=== PATIENT | male | born 1940 | race Caucasian/White ===

== ENCOUNTER 2019-06-14 08:10 | Outpatient (CLI) | payer MEDICARE, BC, SELFPAY ==
--- NOTE | 2019-06-14 06:00 | DI.RAD_ITS ---
SYMPTOM/DIAGNOSIS: LUMBAR SPONDYLOSIS C-ARM FLUOROSCOPY LUMBAR SPINE: Fluoroscopy Time: 78.9 sec Fluoroscopy was provided for guidance with lumbar spine injections. Please see procedure note for details.
[2019-06-14 09:04] VITALS: BP 176/86; PULSE 95; RESP 18; TEMP 36.2; O2SAT 100
[2019-06-14] MEDS: Midazolam 2 MG/2 ML VIAL IVP (09:33)
[2019-06-14] MEDS: Lactated Ringers 1,000 ML 80 ML IV (09:34)
[2019-06-14] MEDS: fentaNYL 100 MCG/2 ML VIAL IVP (09:34)
[2019-06-14] MEDS: Lidocaine 2% Pres-Free 5 ML VIAL IJ (09:55)
[2019-06-14 10:11] VITALS: BP 161/77; PULSE 103; RESP 12; O2SAT 98
[2019-06-14] MEDS: methylPREDNISolone ACETATE 40 MG/ML VIAL IJ (10:13)
[2019-06-14] MEDS: Bupivacaine 0.5% Pres-Free 10 ML VIAL IJ (10:14)
--- NOTE | 2019-06-14 10:16 | PDOC.PAIN ---
Pain Clinic Procedure Note Current Active Problems Problem Status Onset Spondylosis of lumbar region without myelopathy or radiculopathy LUMBAR/SACRAL MEDIAL BRANCH RADIOFREQUENCY USING THE COOLIEF MACHINE ALBER ESPINOZA has been referred [facility] for radiofrequency treatment of chronic axial back pain. ALBER has had long standing back pain thought to be facet joint generated and which has been refractory to other therapies. Local anesthetic medial branch blocks or intra-articular facet joint injections resulted in ALBER reporting reduction of the usual axial component of pain for at least the duration of the local anesthetic effect. COMMENTS:>6 MONTHS OF RELIEF WITH HIS LAST RFA ON 04/06/18. I DID DECIDED TO ADD BILATERAL S1 LATERAL BRANCH RFA TO GET BETTER ABLATION OF THE BILATERAL L5-S1 FACET JOINTS. Patient was interviewed and the medical record reviewed. There were no medical, pharmacologic, radiographic or other structural contraindications to attempting fluoroscopically guided radiofrequency treatment. Risks and expected side effects as well as potential benefit of the procedure were reviewed and voiced concerns addressed. The printed consent form was signed and witnessed. Standard time-out procedure was performed. Patient was placed in the prone position on the fluoroscopy table and automated blood pressure cuff and pulse oximeter applied. The skin entry points for approaching the anatomic target points of the segmental medial branches of bilateral L3-L5 and the lateral branches of bilateral S1were identified with fluoroscopy and marked. Following thorough Chlorhexadine preparation of the skin and draping and 1% lidocaine infiltration of the skin entry points and subcutaneous tissues, a single 18 guage curved 10 cm 10mm active tip radiofrequency cannula was placed under fluoroscopic guidance along or across the anatomic course of each respective segmental medial branch. Each placement was stimulated at 50Hz and les then 0.5V for medial branch sensory localization and the at 2Hz and up to 3 times the sensory voltage without any evidence of distal myotomal stimulation. 1cc of 1% ;idocaine was injected at each site. At each placement a continuous mode radiofrequency treatment was done at 80 degrees C for 90secs. This radiofrequency treatment should result in the denervation of the bilateral L4-L5 and L5-S1 FACET JOINTS. A total of 4 facets were expected to be denervated from today's treatment. Vital signs were stable throughout the procedure and were as recorded in the docflowsheet by the nursing staff. If given, dosages of intravenous drugs for anxiolysis and analgesia were documented in the Medication Administration Record (MAR). Follow up plans and appointments were discussed. Post procedure instruction was given as documented in the nursing documentation and having met discharge criteria, ALBER was discharged from the [facility]. COMMENTS: If he gets at least 6 months of relief from this procedure, he can have if repeated without repeating the LMBBs. CC: Tal Acosta
== END 2019-06-14 08:30 ==
PROVIDERS: PCP Family Medicine; Visit Provider Preventive Medicine Occupational Medicine
DX: M47.816 Spondylosis without myelopathy or radiculopathy, lumbar region (principal)
CPT/HCPCS: 64636 ×2; 64635 ×2; 72100; J1030; J2250; J3010

== ENCOUNTER 2019-07-05 10:11 | Outpatient (CLI) | payer MEDICARE, BC, SELFPAY ==
[2019-07-05 09:43] VITALS: BP 133/74; PULSE 53; RESP 16; TEMP 36.3; O2SAT 98
[2019-07-05] MEDS: Midazolam 2 MG/2 ML VIAL IVP (10:36)
[2019-07-05] MEDS: fentaNYL 100 MCG/2 ML VIAL IVP (10:38)
[2019-07-05] MEDS: Lactated Ringers 1,000 ML 80 ML IV (10:40)
[2019-07-05 11:02] VITALS: BP 163/74; PULSE 92; RESP 13; O2SAT 97
--- NOTE | 2019-07-05 11:02 | DI.RAD_ITS ---
SYMPTOMS/DIAGNOSIS: CERVICAL RADIOFREQUENCY ABLATION, CERVICAL SPONDYLOSIS C-ARM FLUOROSCOPY: Fluoroscopy Time: 46.0 sec., 10.43 mGy. C-arm fluoroscopy was utilized by Dr. Kilpatrick during reported cervical radiofrequency ablation. Hardcopy shows needle placement in lateral projection at what appears to be the C 3 - 4 and C 4 - 5 levels.
[2019-07-05] MEDS: Lidocaine 2% Pres-Free 5 ML VIAL IJ (12:09)
[2019-07-05] MEDS: Bupivacaine 0.5% Pres-Free 10 ML VIAL IJ (12:09)
[2019-07-05] MEDS: Dexamethasone Sod. Phos./Pres-Free 10 MG/ML VIAL IJ (12:10)
--- NOTE | 2019-07-05 12:30 | PDOC.PAIN_ITS ---
Pain Clinic Procedure Note Current Active Problems Problem Status Onset Spondylosis of cervical region without myelopathy or radiculopathy CERVICAL MEDIAL BRANCH RADIOFREQUENCY USING THE [employer] MACHINE ALBER ESPINOZA has been referred to the [facility] for radiofrequency treatment of chronic axial neck pain. @capnghia@ has had long standing cervical pain thought to be facet joint generated and which has been refractory to other therapies. Local anesthetic medial branch blocks resulted in @m@ @lname@ reporting a greater than 80% reduction of the usual axial component of pain and improved function for at least the duration of the local anesthetic effect. COMMENTS: He had about 10 months relief with his last cervical RFA at right C4- C7 on 04/27/18.: OLGA was interviewed and the medical record reviewed. There were no medical, pharmacologic, radiographic or other structural contraindications to attempting fluoroscopically guided radiofrequency treatment. Risks and expected side effects as well as potential benefit of the procedure were reviewed with OLGA, and OLGA's voiced concerns addressed. The printed consent form was signed and witnessed. Standard time-out procedure was performed. OLGA was placed in the prone position on the fluoroscopy table and automated blood pressure cuff and pulse oximeter applied. The skin entry points for approaching the anatomic target points of the segmental medial branches of right C4-C7 were identified with fluoroscopic guidence. Following thorough Chlorhexadine preparation of the skin and draping and 1% lidocaine infiltration of the skin entry points and subcutaneous tissues, a 5 cm, 18 guage, 10 mm active tip radiofrequency cannula was placed under fluoroscopic guidance at the anatomic course of each respective segmental medial branch. Each placement was stimulated at 50Hz and up to 1v in attempt to reproduce some component of OLGA?s usual pain. If this response was accomplished, the cannula was left in place. If it could not be accomplished after multiple attempts, the cannula was placed at what was felt to be the closest anatomic approximation to the segmental medial branch. Each placement was stimulated at 2Hz and up to 3v without any evidence of distal myotomal stimulation. At each placement a continuous mode radiofrequency treatment was done at 80 degrees C for 90secs This radiofrequency treatment should result in the denervation of the {Desc; right C4-C5, C5-C6 and C6-C7 FACET JOINTS. A total of 3 facets were expected to be denervated from today's treatment. OLGA's vital signs were stable throughout the procedure and were as recorded in the docflowsheet by the nursing staff. Follow up plans and appointments were discussed with OLGA. Post procedure instruction was given as documented in the nursing documentation and having met discharge criteria, Connor was discharged from the [facility]. COMMENTS: This procedure can be completed without repeating the CMBBs if he receives at least 6 months of relief. CC: Tal Acosta
== END 2019-07-05 10:31 ==
PROVIDERS: PCP Family Medicine; Visit Provider Preventive Medicine Occupational Medicine
DX: M47.812 Spondylosis without myelopathy or radiculopathy, cervical region (principal)
CPT/HCPCS: 64634 ×2; 64633; 72040; J2250; J3010

== ENCOUNTER 2019-08-07 08:55 | Outpatient (CLI) | payer MEDICARE, BC, SELFPAY ==
--- NOTE | 2019-08-07 06:00 | DI.RAD_ITS ---
EXAM: XR PAIN CLINIC . CLINICAL HISTORY: LT CERVICAL RFA TECHNIQUE: Realtime digital imaging was performed. CONTRAST MATERIAL: Water soluble contrast was administered. COMPARISON: None. FINDINGS: Images obtained from the pain clinic demonstrate needle positioning over the level of C 3, C4 and C5 in connection with a radiofrequency ablation. Please see Dr. Kilpatrick's procedure report for further inf ormation. IMPRESSION:
[2019-08-07 09:23] VITALS: BP 162/93; PULSE 96; RESP 18; TEMP 36; O2SAT 98
[2019-08-07] MEDS: Bupivacaine 0.5% Pres-Free 10 ML VIAL IJ (09:59)
--- NOTE | 2019-08-07 10:00 | PDOC.PAIN_ITS ---
Pain Clinic Procedure Note Procedure Note Procedure Note: CERVICAL MEDIAL BRANCH BLOCKS ALBER ESPINOZA has been referred to the [facility] for cervical medial branch blocks. COMMENTS: I did review Ms. Warren's note and spoke with the patient. He has left-sided neck pain which does not radiate into the head and travels to the upper mid-back. DX: Cervical spondylosis without myelopathy OLGA was interviewed and the medical record reviewed. There were no medical, pharmacologic, radiographic or other structural contraindications to attempting fluoroscopically guided local anesthetic cervical medial branch blocks. Risks and expected side effects as well as potential benefit of the procedure were reviewed with OLGA, and OLGA's voiced concerns addressed. The printed consent form was signed and witnessed. Standard time-out procedure was performed. OLGAwas placed in the Right lateral decubitus position on the fluoroscopy table and automated blood pressure cuff and pulse oximeter applied. The skin entry points for approaching the anatomic target points of the segmental medial branches of Left C3-C6 were identified with fluoroscopy and marked. Following thorough Chlorhexadine preparation of the skin and draping and 1% lidocaine infiltration of the skin entry points and subcutaneous tissues, a 25 gauge spinal needle was placed under fluoroscopic guidance down on to the target point for each res pective segmental medial branch. Position was confirmed in A/P and leteral views with 0.25ml of omnipaque 240 injected at each level. At each point 0.3ml 0.5% bupivicaine was injected. Connor vital signs were stable throughout the procedure and were as recorded in the docflowsheet by the nursing staff. Follow up plans and appointments were discussed with OLGA. OLGA was instructed to keep careful note of how the usual pain was modified by these injections. Specifically, the patient was asked to keep a pain diary for the next 24 hours using a numeric pain scale of 0-10 and report these results at the follow-up visit. Post procedure instruction was given as documented in the nursing documentation and having met discharge criteria, Connor was discharged from the [facility]. Based on the medial branches blocked today, if they patient has adequate relief and we are able to proceed to radiofrequency ablation, the treatment should result in the denervation of the left C3-C4, C4-C5, and C5-C6 FACET JOINTS. We would expect to denervate a total of 3 facets during the radiofrequency ablation. COMMENTS: He will call back with his 1-4 hour post-procedure pain scores for the left neck. CC: Tal Acosta
[2019-08-07] MEDS: Omnipaque 240 MG/ML 50 ML BTL IJ (10:01)
[2019-08-07 10:03] VITALS: BP 137/74; PULSE 80; RESP 12; O2SAT 99
== END 2019-08-07 09:15 ==
PROVIDERS: PCP Family Medicine; Visit Provider Preventive Medicine Occupational Medicine
DX: M47.812 Spondylosis without myelopathy or radiculopathy, cervical region (principal)
CPT/HCPCS: 64490; 64491; 64492; 72040; 72100; Q9967

== ENCOUNTER 2019-08-09 12:33 | Outpatient (CLI) | payer MEDICARE, BC, SELFPAY ==
[2019-08-09 13:28] VITALS: BP 144/81; PULSE 85; RESP 18; TEMP 37.3; O2SAT 99
[2019-08-09] MEDS: Omnipaque 240 MG/ML 50 ML BTL IJ (14:00)
[2019-08-09] MEDS: Lidocaine 2% Pres-Free 5 ML VIAL IJ (14:04)
--- NOTE | 2019-08-09 14:05 | DI.RAD_ITS ---
EXAM: XR PAIN CLINIC CERVICAL SP 2V CLINICAL HISTORY: Dx: Cervical Spondylosis TECHNIQUE: Realtime digital imaging was performed. . COMPARISON: None. FINDINGS: C-ARM FLUOROSCOPY WAS UTILIZED BY DR. PAIGE DURING REPORTED CERVICAL MEDIAL BRANCH BLOCK. HARD COPIES SHOW NEEDLE PLACEMENT OVERLYING THE FACET JOINTS IN WHAT APPEAR TO BE THE C3, C4 AND C5 LEVELS.
[2019-08-09 14:06] VITALS: BP 140/58; PULSE 85; RESP 12; O2SAT 98
--- NOTE | 2019-08-09 14:07 | PDOC.PAIN ---
Pain Clinic Procedure Note Procedure Note Procedure Note: CERVICAL MEDIAL BRANCH BLOCKS ALBER ESPINOZA has been referred to the [facility] for cervical medial branch blocks. COMMENTS: He did well with the first CMBBs. DX: Cervical spondylosis without myelopathy Patient was interviewed and the medical record reviewed. There were no medical, pharmacologic, radiographic or other structural contraindications to attempting fluoroscopically guided local anesthetic cervical medial branch blocks. Risks and expected side effects as well as potential benefit of the procedure were reviewed and voiced concerns addressed. The printed consent form was signed and witnessed. Standard time-out procedure was performed. Patient was placed in the Right lateral decubitus position on the fluoroscopy table and automated blood pressure cuff and pulse oximeter applied. The skin entry points for approaching the anatomic target points of the segmental medial branches of Left C3-C6 medial branches were identified with fluoroscopy and marked. Following thorough Chlorhexadine preparation of the skin and draping and 1% lidocaine infiltration of the skin entry points and subcutaneous tissues, a 25 gauge spinal needle was placed under fluoroscopic guidance down on to the target point for each respective segmental medial branch. Position was confirmed in A/P and lateral views with 0.25ml of omnipaque 240 injected at each level. This revealed appropriate spread and no vascular uptake. At each point 0.3ml 2% Lidocaine was injected. Vital signs were stable throughout the procedure and were as recorded in the docflowsheet by the nursing staff. Follow up plans and appointments were discussed and patient was instructed to keep careful note of how the usual pain was modified by these injections. Specifically, the patient was asked to keep a pain diary for the next 24 hours using a numeric pain scale of 0-10 and report these results at the follow-up visit. Post procedure instruction was given as documented in the nursing documentation and having met discharge criteria, and was discharged from the [facility]. Based on the medial branches blocked today, if they patient has adequate relief and we are able to proceed to radiofrequency ablation, the treatment should result in the denervation of the left C3-C4, C4-C5, and C5-C6 FACET JOINTS3. We would expect to denervate a total of facets during the radiofrequency ablation. COMMENTS: He will call back with his 1-4 post-procedure pain scores. CC: Tal Acosta
== END 2019-08-09 12:53 ==
PROVIDERS: PCP Family Medicine; Visit Provider Preventive Medicine Occupational Medicine
DX: M47.812 Spondylosis without myelopathy or radiculopathy, cervical region (principal)
CPT/HCPCS: 64490; 64491; 64492; 72040; Q9967

== ENCOUNTER 2019-08-21 07:37 | Outpatient (CLI) | payer MEDICARE, BC, SELFPAY ==
[2019-08-21 07:47] VITALS: BP 139/73; PULSE 79; RESP 17; TEMP 36.8; O2SAT 98
[2019-08-21] MEDS: Midazolam 2 MG/2 ML VIAL IVP (08:35)
[2019-08-21] MEDS: fentaNYL 100 MCG/2 ML VIAL IVP (08:35)
--- NOTE | 2019-08-21 09:11 | PDOC.PAIN ---
Pain Clinic Procedure Note Procedure Note Procedure Note: CERVICAL MEDIAL BRANCH RADIOFREQUENCY USING THE COOLIEF MACHINE ALBER ESPINOZA has been referred to the [facility] for radiofrequency treatment of chronic axial neck pain. Patient has had long standing cervical pain thought to be facet joint generated and which has been refractory to other therapies. Local anesthetic medial branch blocks resulted in reporting a greater than 50% reduction of the usual axial component of pain for at least the duration of the local anesthetic effect. COMMENTS: Great relief with the CMBBs DX: Cervical spondylosis without myelopathy Patient was interviewed and the medical record reviewed. There were no medical, pharmacologic, radiographic or other structural contraindications to attempting fluoroscopically guided radiofrequency treatment. Risks and expected side effects as well as potential benefit of the procedure were reviewed and voiced concerns addressed. The printed consent form was signed and witnessed. Standard time-out procedure was performed. Patient was placed in the prone position on the fluoroscopy table and automated blood pressure cuff and pulse oximeter applied. The skin entry points for approaching the anatomic target points of the segmental medial branches of bilateral left C3-C6 were identified with fluoroscopic guidence. Following thorough Chlorhexadine preparation of the skin and draping and 1% lidocaine infiltration of the skin entry points and subcutaneous tissues, a 10cm, 18 guage, 10 mm active tip radiofrequency cannula was placed under fluoroscopic guidance at the anatomic course of each respective segmental medial branch. Each placement was stimulated at 2Hz and up to 3v without any evidence of distal myotomal stimulation. 0.5ml of 1% lidocaine was injected each level. At each placement a continuous mode radiofrequency treatment was done at 80 degrees C for 90secs. This radiofrequency treatment should result in the denervation of the bilateral C3-C4, C4-C5, and C5-C6 FACET JOINTS3. A total of facets were expected to be denervated from today's treatment. Vital signs were stable throughout the procedure and were as recorded in the docflowsheet by the nursing staff. If given, dosages of intravenous drugs for anxiolysis and analgesia were documented in the Medication Administration Record (MAR). Follow up plans and appointments were discussed. Post procedure instruction was given as documented in the nursing documentation and having met discharge criteria, was discharged from the [facility]. COMMENTS: If this procedure gives him at least 6 months of relief, it can be repeated without repeating the CMBBs. CC: Tal Acosta
[2019-08-21 09:12] VITALS: BP 134/61; PULSE 84; RESP 11; O2SAT 97
--- NOTE | 2019-08-21 09:12 | DI.RAD_ITS ---
EXAM: XR PAIN CLINIC CERVICAL SP 2V CLINICAL HISTORY: Dx: Cervical Spondylosis TECHNIQUE: Realtime digital imaging was performed. COMPARISON: No exams were available for comparison FINDINGS: Fluoroscopy was utilized by Dr. Kilpatrick during the performance of a cervical radiofrequency ablation. P lease refer to the procedure report for complete details. Fluoro time: 85.7 seconds
[2019-08-21] MEDS: Lidocaine 2% Pres-Free 5 ML VIAL IJ (09:27)
[2019-08-21] MEDS: Bupivacaine 0.5% Pres-Free 10 ML VIAL IJ (09:27)
[2019-08-21] MEDS: Dexamethasone Sod. Phos./Pres-Free 10 MG/ML VIAL IJ (09:27)
== END 2019-08-21 07:57 ==
PROVIDERS: PCP Family Medicine; Visit Provider Preventive Medicine Occupational Medicine
DX: M47.812 Spondylosis without myelopathy or radiculopathy, cervical region (principal)
CPT/HCPCS: 64634 ×2; 64633; 72040; J2250; J3010

== ENCOUNTER 2019-09-20 09:29 | Outpatient (REF) | payer MEDICARE, BC, SELFPAY ==
[2019-09-25 07:56] LABS: 2-Hydroxy Ethyl Flurazepam Not Detected ng/mL (Cutoff: 10); 6-monoacetylmorphine Not Detected ng/mL (Cutoff: 25); Alpha-Hydroxy Midazolam Not Detected ng/mL (Cutoff: 10); Alpha-Hydroxy Triazolam Not Detected ng/mL (Cutoff: 10); Alpha-Hydroxyalprazolam Not Detected ng/mL (Cutoff: 10); Alpha-OH-alprazolam Glucuronid Not Detected ng/mL (Cutoff: 50); Alprazolam Not Detected ng/mL (Cutoff: 10); Amphetamines Negative ng/mL (Cutoff: 500); Barbiturates Negative ng/mL (Cutoff: 200); Buprenorphine Not Detected ng/mL (Cutoff: 5); Chlordiazepoxide Not Detected ng/mL (Cutoff: 10); Clobazam Not Detected ng/mL (Cutoff: 10); Clonazepam Not Detected ng/mL (Cutoff: 10); Cocaine Negative ng/mL (Cutoff: 150); Codeine Not Detected ng/mL (Cutoff: 25); Comment Normal; Creatinine, U 64.6 mg/dL; Diazepam Not Detected ng/mL (Cutoff: 10); Dihydrocodeine Not Detected ng/mL (Cutoff: 25); EDDP Not Detected ng/mL (Cutoff: 25); Fentanyl Not Detected ng/mL (Cutoff: 2); Flurazepam Not Detected ng/mL (Cutoff: 10); Hydrocodone Not Detected ng/mL (Cutoff: 25); Hydromorphone Not Detected ng/mL (Cutoff: 25); Hydromorphone-3-beta-glucuroni Not Detected ng/mL (Cutoff: 100); Lorazepam Not Detected ng/mL (Cutoff: 10); Lorazepam Glucuronide Not Detected ng/mL (Cutoff: 50); Meperidine Not Detected ng/mL (Cutoff: 25); Methadone Not Detected ng/mL (Cutoff: 25); Midazolam Not Detected ng/mL (Cutoff: 10); Morphine Not Detected ng/mL (Cutoff: 25); N-Desmethylclobazam Not Detected ng/mL (Cutoff: 200); N-desmethyltapentadol Not Detected ng/mL (Cutoff: 50); Naloxone Not Detected ng/mL (Cutoff: 25); Norbuprenorphine Not Detected ng/mL (Cutoff: 5); Norfentanyl Not Detected ng/mL (Cutoff: 2); Norhydrocodone Not Detected ng/mL (Cutoff: 25); Normeperidine Not Detected ng/mL (Cutoff: 25); Noroxycodone Not Detected ng/mL (Cutoff: 25); Noroxymorphone Not Detected ng/mL (Cutoff: 25); O-desmethyltramadol Present ng/mL (Cutoff: 25); Oxazepam Glucuronide Not Detected ng/mL (Cutoff: 50); Phencyclidine Negative ng/mL (Cutoff: 25); Prazepam Not Detected ng/mL (Cutoff: 10); Propoxyphene Not Detected ng/mL (Cutoff: 25); Specific Gravity 1.009; Tapentadol Not Detected ng/mL (Cutoff: 25); Temazepam Not Detected ng/mL (Cutoff: 10); Temazepam Glucuronide Not Detected ng/mL (Cutoff: 50); Tetrahydrocannabinol Negative ng/mL (Cutoff: 50); Tramadol Present ng/mL (Cutoff: 25); Triazolam Not Detected ng/mL (Cutoff: 10); Zolpidem Phenyl-4-Carboxy acid Not Detected ng/mL (Cutoff: 10); pH 4.8
== END 2019-09-20 09:49 ==
LOC: LBN 09:29
PROVIDERS: PCP Family Medicine; Visit Provider Nurse Practitioner Family
DX: M47.812 Spondylosis without myelopathy or radiculopathy, cervical region (principal); M47.816 Spondylosis without myelopathy or radiculopathy, lumbar region
CPT/HCPCS: 80307; 80364

== ENCOUNTER 2019-12-18 09:43 | Outpatient (REF) | payer MEDICARE, BC, SELFPAY ==
[2019-12-21 11:50] LABS: 2-Hydroxy Ethyl Flurazepam Not Detected ng/mL (Cutoff: 10); 6-monoacetylmorphine Not Detected ng/mL (Cutoff: 25); Alpha-Hydroxy Midazolam Not Detected ng/mL (Cutoff: 10); Alpha-Hydroxy Triazolam Not Detected ng/mL (Cutoff: 10); Alpha-Hydroxyalprazolam Not Detected ng/mL (Cutoff: 10); Alpha-OH-alprazolam Glucuronid Not Detected ng/mL (Cutoff: 50); Alprazolam Not Detected ng/mL (Cutoff: 10); Amphetamines Negative ng/mL (Cutoff: 500); Barbiturates Negative ng/mL (Cutoff: 200); Buprenorphine Not Detected ng/mL (Cutoff: 5); Chlordiazepoxide Not Detected ng/mL (Cutoff: 10); Clobazam Not Detected ng/mL (Cutoff: 10); Clonazepam Not Detected ng/mL (Cutoff: 10); Cocaine Negative ng/mL (Cutoff: 150); Codeine Not Detected ng/mL (Cutoff: 25); Comment Normal; Creatinine, U 101.7 mg/dL; Diazepam Not Detected ng/mL (Cutoff: 10); Dihydrocodeine Not Detected ng/mL (Cutoff: 25); EDDP Not Detected ng/mL (Cutoff: 25); Fentanyl Not Detected ng/mL (Cutoff: 2); Flurazepam Not Detected ng/mL (Cutoff: 10); Hydrocodone Not Detected ng/mL (Cutoff: 25); Hydromorphone Not Detected ng/mL (Cutoff: 25); Hydromorphone-3-beta-glucuroni Not Detected ng/mL (Cutoff: 100); Lorazepam Not Detected ng/mL (Cutoff: 10); Lorazepam Glucuronide Not Detected ng/mL (Cutoff: 50); Meperidine Not Detected ng/mL (Cutoff: 25); Methadone Not Detected ng/mL (Cutoff: 25); Midazolam Not Detected ng/mL (Cutoff: 10); Morphine Not Detected ng/mL (Cutoff: 25); N-Desmethylclobazam Not Detected ng/mL (Cutoff: 200); N-desmethyltapentadol Not Detected ng/mL (Cutoff: 50); Naloxone Not Detected ng/mL (Cutoff: 25); Norbuprenorphine Not Detected ng/mL (Cutoff: 5); Norfentanyl Not Detected ng/mL (Cutoff: 2); Norhydrocodone Not Detected ng/mL (Cutoff: 25); Normeperidine Not Detected ng/mL (Cutoff: 25); Noroxycodone Not Detected ng/mL (Cutoff: 25); Noroxymorphone Not Detected ng/mL (Cutoff: 25); O-desmethyltramadol Present ng/mL (Cutoff: 25); Oxazepam Glucuronide Not Detected ng/mL (Cutoff: 50); Phencyclidine Negative ng/mL (Cutoff: 25); Prazepam Not Detected ng/mL (Cutoff: 10); Propoxyphene Not Detected ng/mL (Cutoff: 25); Specific Gravity 1.009; Tapentadol Not Detected ng/mL (Cutoff: 25); Temazepam Not Detected ng/mL (Cutoff: 10); Temazepam Glucuronide Not Detected ng/mL (Cutoff: 50); Tetrahydrocannabinol Negative ng/mL (Cutoff: 50); Tramadol Present ng/mL (Cutoff: 25); Triazolam Not Detected ng/mL (Cutoff: 10); Zolpidem Phenyl-4-Carboxy acid Not Detected ng/mL (Cutoff: 10); pH 5.8
== END 2019-12-18 10:03 ==
LOC: LBN 09:43
PROVIDERS: PCP Family Medicine; Visit Provider Nurse Practitioner Family
DX: G89.29 Other chronic pain (principal); Z79.891 Long term (current) use of opiate analgesic
CPT/HCPCS: 80307; 80347; 80364

== ENCOUNTER 2020-04-30 11:46 | Outpatient (REF) | payer MEDICARE, SELFPAY ==
[2020-05-04 04:41] LABS: 2-Hydroxy Ethyl Flurazepam Not Detected ng/mL (Cutoff: 10); 6-monoacetylmorphine Not Detected ng/mL (Cutoff: 25); Alpha-Hydroxy Midazolam Not Detected ng/mL (Cutoff: 10); Alpha-Hydroxy Triazolam Not Detected ng/mL (Cutoff: 10); Alpha-Hydroxyalprazolam Not Detected ng/mL (Cutoff: 10); Alpha-OH-alprazolam Glucuronid Not Detected ng/mL (Cutoff: 50); Alprazolam Not Detected ng/mL (Cutoff: 10); Amphetamines Negative ng/mL (Cutoff: 500); Barbiturates Negative ng/mL (Cutoff: 200); Buprenorphine Not Detected ng/mL (Cutoff: 5); Chlordiazepoxide Not Detected ng/mL (Cutoff: 10); Clobazam Not Detected ng/mL (Cutoff: 10); Clonazepam Not Detected ng/mL (Cutoff: 10); Cocaine Negative ng/mL (Cutoff: 150); Codeine Not Detected ng/mL (Cutoff: 25); Comment Normal; Creatinine, U 104.4 mg/dL; Diazepam Not Detected ng/mL (Cutoff: 10); Dihydrocodeine Not Detected ng/mL (Cutoff: 25); EDDP Not Detected ng/mL (Cutoff: 25); Fentanyl Not Detected ng/mL (Cutoff: 2); Flurazepam Not Detected ng/mL (Cutoff: 10); Hydrocodone Not Detected ng/mL (Cutoff: 25); Hydromorphone Not Detected ng/mL (Cutoff: 25); Hydromorphone-3-beta-glucuroni Not Detected ng/mL (Cutoff: 100); Lorazepam Not Detected ng/mL (Cutoff: 10); Lorazepam Glucuronide Not Detected ng/mL (Cutoff: 50); Meperidine Not Detected ng/mL (Cutoff: 25); Methadone Not Detected ng/mL (Cutoff: 25); Midazolam Not Detected ng/mL (Cutoff: 10); Morphine Not Detected ng/mL (Cutoff: 25); N-Desmethylclobazam Not Detected ng/mL (Cutoff: 200); N-desmethyltapentadol Not Detected ng/mL (Cutoff: 50); Naloxone Not Detected ng/mL (Cutoff: 25); Norbuprenorphine Not Detected ng/mL (Cutoff: 5); Norfentanyl Not Detected ng/mL (Cutoff: 2); Norhydrocodone Not Detected ng/mL (Cutoff: 25); Normeperidine Not Detected ng/mL (Cutoff: 25); Noroxycodone Not Detected ng/mL (Cutoff: 25); Noroxymorphone Not Detected ng/mL (Cutoff: 25); O-desmethyltramadol Present ng/mL (Cutoff: 25); Oxazepam Glucuronide Not Detected ng/mL (Cutoff: 50); Phencyclidine Negative ng/mL (Cutoff: 25); Prazepam Not Detected ng/mL (Cutoff: 10); Propoxyphene Not Detected ng/mL (Cutoff: 25); Specific Gravity 1.007; Tapentadol Not Detected ng/mL (Cutoff: 25); Temazepam Not Detected ng/mL (Cutoff: 10); Temazepam Glucuronide Not Detected ng/mL (Cutoff: 50); Tetrahydrocannabinol Negative ng/mL (Cutoff: 50); Tramadol Present ng/mL (Cutoff: 25); Triazolam Not Detected ng/mL (Cutoff: 10); Zolpidem Phenyl-4-Carboxy acid Not Detected ng/mL (Cutoff: 10); pH 6.1
== END 2020-04-30 12:06 ==
LOC: LBN 11:46
PROVIDERS: PCP Family Medicine; Visit Provider Nurse Practitioner Family
DX: Z79.891 Long term (current) use of opiate analgesic (principal)
CPT/HCPCS: 80307; 80347; 80364